=== PATIENT | female | born 1980 | race Caucasian/White ===

== ENCOUNTER 2017-06-23 10:44 | Emergency (ER) | payer SELFPAY ==
[2017-06-23] MEDS ORDERED: Lorazepam 2 MG/ML VIAL ONE (11:34)
[2017-06-23] MEDS ORDERED: Ondansetron HCl/PF 4 MG/2 ML Vial ONE (11:34)
== END 2017-06-23 11:42 | disposition home or self-care (01) ==
LOC: ERS 10:44
DX: F41.9 Anxiety disorder, unspecified (principal); K52.9 Noninfective gastroenteritis and colitis, unspecified; F17.210 Nicotine dependence, cigarettes, uncomplicated
CPT/HCPCS: 96374; 96375; 99406; J2060; J2405

== ENCOUNTER 2021-09-10 06:50 | Inpatient (IN) | payer OTHER, SELFPAY ==
[2021-09-10 07:32] LABS: Bacteria/HPF None Seen HPF (None Seen); Bilirubin Negative (Negative); Blood, Urine 1+ (Negative); Clarity Clear (Clear); Glucose, Urine (Dipstick) Normal (Negative); Ketone, Urine 20 mg/dL (Negative); Leukocyte Negative Leu/uL (Negative); Nitrite Negative (Negative); Protein, Urine (Dipstick) 10 mg/dL (Neg-Trace); Specific Gravity, Urine 1.023 (1.002-1.036); Squamous Epithelial 0-3 HPF (0-3); Urobilinogen Normal mg/dL (Less than 2); WBC/HPF 0-3 HPF (0-3)
[2021-09-10 08:11] LABS: Hemoglobin 13.7 g/dL (12.0-16.0); Mean Corpuscular HGB CONC 32.9 g/dL (32.0-36.0); Mean Corpuscular Hemoglobin 30.2 pg (27.0-31.0); Mean Corpuscular Volume 91.9 fL (78.0-98.0); RBC Distribution Width 12.7 % (11.5-14.5); Red Blood Cell (RBC) Count 4.52 mill/uL (4.20-5.40)
[2021-09-10 08:17] LABS: BHCG - Serum Negative (NEGATIVE); Pregs Control Background? CLEAR/WHITE (CLR/WHITE); Pregs Control Bar Appear? YES (CONTROL BAR)
[2021-09-10 08:33] LABS: ALT (SGPT) 14 U/L (8-55); AST (SGOT) 13 U/L (5-34); Albumin 4.4 g/dL (3.5-5.0); Alkaline Phosphatase 78 U/L (40-110); Anion Gap 16 mmol/L (10-20); BUN (Urea Nitrogen) 10 mg/dL (7.0-18.7); Calc. Creatinine Clearance 0 mL/min (70-130); Calcium 9.6 mg/dL (7.8-10.44); Carbon Dioxide 23 mmol/L (22-29); Chloride 100 mmol/L (98-107); Globulin 3.7 g/dL (2.4-3.5); Glucose 118 mg/dL (70-105); Lipase 28 U/L (8-78); Potassium 3.7 mmol/L (3.5-5.1); Protein, Total 8.1 g/dL (6.0-8.3); Sodium 135 mmol/L (136-145)
[2021-09-10 08:34] LABS: Band 3 % (5-11); Large Platelets SLIGHT; Lymphocytes 13 % (21-51); MDiff Complete? YES; Mean Platelet Volume 7.5 fL (7.4-10.4); Monocytes 3 % (0-10); Neutrophil 80 % (42-75); Platelet Count 276 thou/uL (130-400); Platelet Morphology Comment Appears Adequate; RBC Morphology Normal; White Blood Cell (WBC) Count 20.6 thou/uL (4.8-10.8)
[2021-09-10] MEDS ORDERED: Ondansetron PF 4 MG/2 ML Vial ONE ×2 (08:57→20:55)
[2021-09-10] MEDS ORDERED: Piperacillin/Tazobactam 3.375 GM VIAL ONE ×2 (08:57→18:48)
[2021-09-10] MEDS ORDERED: Ketorolac Tromethamine 30 MG/ML VIAL ONE ×2 (08:57→20:55)
[2021-09-10] MEDS ORDERED: Iopamidol-370 76% 500 ML 1 ML ONE (09:29)
[2021-09-10] MEDS ORDERED: Morphine 4 MG/ML VIAL ONE ×2 (09:58→18:55)
[2021-09-10 11:36] LABS: SARS-CoV-2 NAA Rapid Test Not Detected (NotDetected)
[2021-09-10] MEDS ORDERED: Morphine 2 MG/ML VIAL SLOW IVP PRN (12:19)
[2021-09-10] MEDS ORDERED: Dextrose 50% Abboject 50 ML SYRINGE SLOW IVP PRN (12:19)
[2021-09-10] MEDS ORDERED: Ondansetron PF 4 MG/2 ML Vial IVP PRN (12:19)
[2021-09-10] MEDS ORDERED: hydrALAZINE 20 MG/ML VIAL SLOW IVP PRN (12:19)
[2021-09-10] MEDS ORDERED: Dextrose 5% in Water 1,000 ML IV PRN (12:19)
[2021-09-10] MEDS ORDERED: traMADol HCl 50 MG TAB PO PRN (12:22)
[2021-09-10] MEDS: Lactated Ringer's 1,000 ML IV SCH (14:36)
[2021-09-10] MEDS: Acetaminophen 325 MG TAB PO SCH ×3 (14:44→22:22)
[2021-09-10] MEDS: traMADol HCl 50 MG TAB PO SCH ×3 (14:46→22:39)
[2021-09-10] MEDS: Morphine 4 MG/ML VIAL SLOW IVP PRN ×2 (15:47→23:46)
[2021-09-10 16:11] VITALS: BMI 29.1
[2021-09-10] MEDS ORDERED: Ketorolac Tromethamine 30 MG/ML VIAL IVP SCH (16:45)
[2021-09-10] MEDS ORDERED: Sodium Chloride 0.9% 100 ML ONE (18:48)
[2021-09-10] MEDS ORDERED: Fentanyl 250 MCG/5 ML VIAL ONE (19:13)
[2021-09-10] MEDS ORDERED: Bupivacaine 0.25% HCL 30 ML VIAL ONE (20:02)
[2021-09-10] MEDS ORDERED: Xylocaine 1% w/ Epi 1:100K 10 ML VIAL ONE (20:02)
[2021-09-10] MEDS ORDERED: Dexamethasone 20 MG/5 ML VIAL ONE (20:55)
[2021-09-10] MEDS ORDERED: Lidocaine 1% PF 5 ML VIAL ONE (20:55)
[2021-09-10] MEDS ORDERED: Glycopyrrolate 0.2 MG/ML 5 ML SYRINGE ONE (20:55)
[2021-09-10] MEDS ORDERED: Rocuronium Bromide 10 MG/ML (10ML VIAL) ONE (20:55)
[2021-09-10] MEDS ORDERED: PROPOFOL 200 MG/20 ML VIAL ONE (20:55)
[2021-09-10] MEDS ORDERED: PHENYLEPHRINE-NS 100 MCG/ML 10 ML SYRINGE ONE (20:55)
[2021-09-10] MEDS: Famotidine 20 MG TAB PO SCH (22:22)
[2021-09-10] MEDS: Piperacillin/Tazobactam 3.375 GM in Sodium Chloride 0.9% 100 ML IVPB SCH (22:37)
[2021-09-10] MEDS: Ketorolac Tromethamine 30 MG/ML VIAL IVP SCH (22:38)
[2021-09-11] MEDS: Acetaminophen 325 MG TAB PO SCH ×6 (01:41→21:30)
[2021-09-11] MEDS: traMADol HCl 50 MG TAB PO PRN (01:48)
[2021-09-11] MEDS: Morphine 4 MG/ML VIAL SLOW IVP PRN ×2 (01:49→21:30)
[2021-09-11 05:12] LABS: #Monocytes 0.5 thou/uL (0.11-0.59); #Neutrophils 11.3 thou/uL (1.40-6.50); %Basophils 0.1 % (0.0-1.0); %Eosinophils 0.1 % (0.0-10.0); %Lymphocytes 7.5 % (21.0-51.0); %Monocytes 3.9 % (0.0-10.0); %Neutrophils 88.4 % (42.0-75.0); Hemoglobin 11.4 g/dL (12.0-16.0); Mean Corpuscular HGB CONC 32.7 g/dL (32.0-36.0); Mean Corpuscular Hemoglobin 30.4 pg (27.0-31.0); Mean Corpuscular Volume 92.8 fL (78.0-98.0); Mean Platelet Volume 7.4 fL (7.4-10.4); Platelet Count 204 thou/uL (130-400); RBC Distribution Width 12.8 % (11.5-14.5); Red Blood Cell (RBC) Count 3.75 mill/uL (4.20-5.40); White Blood Cell (WBC) Count 12.7 thou/uL (4.8-10.8)
[2021-09-11] MEDS: Piperacillin/Tazobactam 3.375 GM in Sodium Chloride 0.9% 100 ML IVPB SCH ×3 (05:16→21:30)
[2021-09-11] MEDS: Ketorolac Tromethamine 30 MG/ML VIAL IVP SCH ×3 (05:16→17:39)
[2021-09-11] MEDS: traMADol HCl 50 MG TAB PO SCH ×3 (05:16→17:38)
[2021-09-11 05:48] LABS: Anion Gap 12 mmol/L (10-20); BUN (Urea Nitrogen) 13 mg/dL (7.0-18.7); Calc. Creatinine Clearance 111 mL/min (70-130); Calcium 7.9 mg/dL (7.8-10.44); Carbon Dioxide 21 mmol/L (22-29); Chloride 107 mmol/L (98-107); Glucose 86 mg/dL (70-105); Potassium 4.2 mmol/L (3.5-5.1); Sodium 136 mmol/L (136-145)
[2021-09-11] MEDS: Lactated Ringer's 1,000 ML IV SCH ×3 (07:17→19:44)
[2021-09-11] MEDS: Famotidine 20 MG TAB PO SCH ×2 (09:08→21:30)
[2021-09-12] MEDS: Acetaminophen 325 MG TAB PO SCH ×2 (00:24→05:38)
[2021-09-12] MEDS: Ketorolac Tromethamine 30 MG/ML VIAL IVP SCH ×2 (00:25→05:37)
[2021-09-12] MEDS: traMADol HCl 50 MG TAB PO SCH ×3 (00:25→12:13)
[2021-09-12] MEDS: Morphine 4 MG/ML VIAL SLOW IVP PRN (03:35)
[2021-09-12] MEDS: Lactated Ringer's 1,000 ML IV SCH (04:33)
[2021-09-12] MEDS: Piperacillin/Tazobactam 3.375 GM in Sodium Chloride 0.9% 100 ML IVPB SCH (05:39)
[2021-09-12] MEDS ORDERED: Amoxicillin/Potassium Clav 875 MG TAB PO SCH (09:00)
[2021-09-12] MEDS ORDERED: Enoxaparin Sodium 40 MG/0.4 ML SYRINGE SC SCH (09:00)
[2021-09-12] MEDS: Famotidine 20 MG TAB PO SCH (09:20)
[2021-09-12] MEDS: Acetaminophen 500 MG TAB PO SCH ×2 (09:20→15:58)
[2021-09-12 10:05] LABS: #Eosinphils 0.2 thou/uL (0.0-0.7); #Lymphocytes 1.1 thou/uL (1.20-3.40); #Monocytes 0.4 thou/uL (0.11-0.59); #Neutrophils 6.6 thou/uL (1.40-6.50); %Basophils 0.4 % (0.0-1.0); %Eosinophils 2.4 % (0.0-10.0); %Lymphocytes 13.6 % (21.0-51.0); %Monocytes 4.2 % (0.0-10.0); %Neutrophils 79.4 % (42.0-75.0); Hemoglobin 11.3 g/dL (12.0-16.0); Mean Corpuscular HGB CONC 33.1 g/dL (32.0-36.0); Mean Corpuscular Hemoglobin 31.3 pg (27.0-31.0); Mean Corpuscular Volume 94.7 fL (78.0-98.0); Mean Platelet Volume 7.8 fL (7.4-10.4); Platelet Count 202 thou/uL (130-400); RBC Distribution Width 12.6 % (11.5-14.5); Red Blood Cell (RBC) Count 3.59 mill/uL (4.20-5.40); White Blood Cell (WBC) Count 8.3 thou/uL (4.8-10.8)
[2021-09-12 10:23] LABS: Anion Gap 13 mmol/L (10-20); BUN (Urea Nitrogen) 18 mg/dL (7.0-18.7); Calc. Creatinine Clearance 113 mL/min (70-130); Calcium 8.3 mg/dL (7.8-10.44); Carbon Dioxide 21 mmol/L (22-29); Chloride 105 mmol/L (98-107); Glucose 99 mg/dL (70-105); Magnesium 1.9 mg/dL (1.6-2.6); Phosphorus 2.2 mg/dL (2.3-4.7); Potassium 3.5 mmol/L (3.5-5.1); Sodium 135 mmol/L (136-145)
[2021-09-12] MEDS ORDERED: Acetaminophen 325 MG TAB PO SCH (12:00)
[2021-09-12] MEDS ORDERED: Potassium Phosphate 30 MMOL in Sodium Chloride 0.9% 250 ML 250 ML IVPB SCH (12:30)
[2021-09-12] MEDS ORDERED: Ibuprofen 200 MG TAB PO SCH (14:00)
[2021-09-12] MEDS: traMADol HCl 50 MG TAB PO PRN (14:44)
[2021-09-12] MEDS ORDERED: PHOS-NAK 1 PKT PACK PO SCH (14:45)
[2021-09-12 15:43] VITALS: BP 129/79; TEMP 98.1
[2021-09-12] MEDS ORDERED: Senokot S 8.6-50 MG TAB PO SCH (21:00)
[2021-09-13] MEDS ORDERED: Polyethylene Glycol 3350 17 GM Packet PO SCH (09:00)
== END 2021-09-12 17:29 | disposition home or self-care (01) | DRG 340 ==
LOC: ERS 06:50 → SURG B 10:23 → OBSVTOIN 09-11 16:14
PROVIDERS: ADMIT Surgery; ATTEND Surgery
PROC: 0DTJ4ZZ Resection of Appendix, Percutaneous Endoscopic Approach (ICD-10-PCS; principal; 2021-09-10)
DX: K35.33 Acute appendicitis with perforation, localized peritonitis, and gangrene, with abscess (principal); Z20.822 Contact with and (suspected) exposure to COVID-19; F17.210 Nicotine dependence, cigarettes, uncomplicated; E87.6 Hypokalemia; E83.42 Hypomagnesemia; E83.39 Other disorders of phosphorus metabolism; Z83.3 Family history of diabetes mellitus; Z81.1 Family history of alcohol abuse and dependence
CPT/HCPCS: 36415; 74177; 80048; 80053; 81003; 81015; 83605; 83690; 83735; 84100; 84703; 85025; 87040; 88304; 96365; 96366; 96375; 96376; G0378; J1100; J1650; J1885; J2270; J2405; J2543; J2704; J3010; J3490; J7050; J7120; Q9967; S0020; U0002